=== PATIENT | female | born 1995 | race Asian ===

== ENCOUNTER 2017-05-16 14:00 | Emergency (ER) | payer MEDICAID ==
[~2017-05-16] VITALS: Ht 160 cm; Wt 67.7 kg
[2017-05-16 14:36] VITALS: BP 119/79
[2017-05-16 16:38] LABS: INFLUENZA TYPE B NEGATIVE FOR TYPE B (NEGATIVE)
== END 2017-05-16 16:26 | disposition left against medical advice (07) ==
LOC: EMS 14:03
DX: J02.9 Acute pharyngitis, unspecified (principal); Z53.21 Procedure and treatment not carried out due to patient leaving prior to being seen by health care provider
CPT/HCPCS: 87430; 87804; 99281

== ENCOUNTER 2022-01-28 08:56 | Emergency (ER) | payer MEDICAID ==
[~2022-01-28] VITALS: Ht 157.5 cm; Wt 68.2 kg
[2022-01-28 14:29] VITALS: BP 130/40
== END 2022-01-28 14:31 | disposition home or self-care (01) ==
LOC: EMS 08:57
DX: T85.898A Other specified complication of other internal prosthetic devices, implants and grafts, initial encounter (principal); S20.02XA Contusion of left breast, initial encounter; Z98.82 Breast implant status; X58.XXXA Exposure to other specified factors, initial encounter; Y93.89 Activity, other specified; Y92.89 Other specified places as the place of occurrence of the external cause; Y99.8 Other external cause status
CPT/HCPCS: 71550; 99284; Z7502

== ENCOUNTER 2022-06-14 14:53 | Emergency (ER) | payer MEDICAID ==
[~2022-06-14] VITALS: Ht 160 cm; Wt 68.2 kg
[2022-06-14] MEDS ORDERED: LEVO1.5T38 PO (14:57)
[2022-06-14] MEDS ORDERED: KETOROLAC TROMETHAMINE 30 MG/ML VIAL IVP ONE (16:30)
[2022-06-14] MEDS ORDERED: SODIUM CHLORIDE 0.9% 1,000 ML IV ONE (16:30)
[2022-06-14 17:15] LABS: BASOPHILS % (AUTO) 0.2 % (0.0-2.0); EOSINOPHILS % (AUTO) 2.2 % (1.0-6.0); HEMOGLOBIN 13.5 g/dL (12.0-16.0); LYMPHOCYTES # (AUTO) 1.9 K/uL (1.0-4.8); LYMPHOCYTES % (AUTO) 33.8 % (22.0-44.0); MEAN CORPUSCULAR HEMOGLOBIN 30.1 pg (26.0-34.0); MEAN CORPUSCULAR HGB CONC 33.7 G/dL (31.0-37.0); MEAN CORPUSCULAR VOLUME 89 fL (80-100); MONOCYTES # (AUTO) 0.3 K/uL (0.1-1.0); MONOCYTES % (AUTO) 5.8 % (2.0-9.0); NEUTROPHILS # (AUTO) 3.3 K/uL (1.8-7.7); PLATELET COUNT (AUTO) 256 K/uL (150-450); RED BLOOD CELL COUNT(AUTO) 4.48 MIL/uL (4.00-5.20); RED CELL DISTRIBUTION WIDTH 12.9 % (11.5-14.5)
[2022-06-14] MEDS ORDERED: IBUP-1492 PO (17:39)
[2022-06-14 17:53] VITALS: BP 122/72
== END 2022-06-14 18:13 | disposition home or self-care (01) ==
LOC: EMS 15:01
DX: R10.32 Left lower quadrant pain (principal); R10.31 Right lower quadrant pain; Z98.890 Other specified postprocedural states
CPT/HCPCS: 99283; 96374; 96361; 84702; 85025; 36415; J1885; J7030